=== PATIENT | female | born 1990 | race Caucasian/White ===

== ENCOUNTER 2017-04-12 17:05 | Emergency (ER) | payer OTHER ==
[~2017-04-12] VITALS: Ht 170.2 cm; Wt 59.0 kg
--- NOTE | 2017-04-12 17:46 | NUR ---
PT AMBULATORY TO ER BED 11 C/O DIZZINESS W/ N/V SINCE THIS AM S/P DRINKING ETOH LAST NIGHT. GOWNED AND PLACED ON MONITOR. NAD NOTED. AWAITING MD WYNN.
--- NOTE | 2017-04-12 17:58 | NUR ---
ADRIEL LUEVANO AT BEDSIDE FOR EVAL.
[2017-04-12] MEDS ORDERED: LORAZEPAM 1 MG TABLET PO ONE (18:00)
[2017-04-12] MEDS ORDERED: ONDANSETRON 4 MG TAB.RAPDIS SL ONE (18:00)
[2017-04-12] MEDS ORDERED: ONDANSETRON HCL/PF 4 MG/2 ML VIAL ONE (18:03)
[2017-04-12] MEDS ORDERED: LORAZEPAM 1 MG TABLET ONE (18:04)
[2017-04-12] MEDS ORDERED: LORAZEPAM INJ 2 MG/ML VIAL ONE (18:09)
--- NOTE | 2017-04-12 18:21 | NUR ---
IV LINE STARTED BLOOD DRAWN AND SENT TO LAB.
[2017-04-12] MEDS ORDERED: ONDANSETRON HCL/PF 4 MG/2 ML VIAL IVP ONE (18:30)
[2017-04-12] MEDS ORDERED: IV NS 0.9% 1,000 ML BAG IV ONE (18:30)
[2017-04-12] MEDS ORDERED: LORAZEPAM INJ 2 MG/ML VIAL IV ONE (18:30)
--- NOTE | 2017-04-12 19:59 | NUR ---
Patient discharged to home in stable condition. Written and verbal after care instructions given. Patient verbalizes understanding of instruction.IV removed. Catheter intact and site benign. Pressure and 4x4 applied to site. No bleeding noted.
[2017-04-12 20:01] VITALS: BP 125/76
== END 2017-04-12 20:02 | disposition home or self-care (01) ==
LOC: ER 17:09
DX: S09.90XA Unspecified injury of head, initial encounter (principal); F07.81 Postconcussional syndrome; R51 Headache; F41.9 Anxiety disorder, unspecified; W01.198A Fall on same level from slipping, tripping and stumbling with subsequent striking against other object, initial encounter; Y92.89 Other specified places as the place of occurrence of the external cause; Y93.89 Activity, other specified; Y99.8 Other external cause status
CPT/HCPCS: 70450; 84703; 96374; 96375; 99284; A4606; J2060; J2405; J7030 ×2; Z7610